=== PATIENT | male | born 2000 | race Caucasian/White ===

== ENCOUNTER → 2021-08-26 | Outpatient (CLI) | payer OTHER ==
[~2021-08-26] MED LIST: ADVAIR 100/501 E1 INH; BACTROBAN OINT22 GM NAS; BROMFED-DM 480480 ML PO; LIQUID MAGNESI400 MG PO; MOTRIN400 MG PO; PERIACTIN2 MG/5ML PO; PHENERGAN25 M1 PO; TOPAMAX25 M1 PO; TUSSIN100 MG/5 M PO; TYLENOL325 M1 PO; VITAMIN B225 MG PO; ZITHROMAX250 MG PO; Zofran4 MG PO
[2021-08-26 14:11] LABS: BASO % 0.4 % (0.0-1.0); EOS # 0.4 10*3/uL (0.0-0.4); EOS % 4.3 % (1.0-4.0); HEMATOCRIT 43.2 % (42.0-52.0); LYMPH # 1.7 10*3/uL (1.3-4.4); LYMPH % 21.4 % (27.0-41.0); MEAN CELL VOLUME 96.9 fl (80.0-94.0); MEAN CORPUSCULAR HGB 33.6 pg (27.0-31.0); MEAN CORPUSCULAR HGB CONC 34.7 g/dl (33.0-37.0); MEAN PLATELET VOLUME 10.8 fl (9.6-12.3); MONO # 1.5 10*3/uL (0.1-1.0); MONO % 18.6 % (3.0-9.0); NEUT # 4.5 10*3/uL (2.3-7.9); NEUT % 55.1 % (47.0-73.0); PLATELET COUNT AUTOMATED 174 10*3/uL (130-400); RED BLOOD COUNT 4.46 10*6/uL (4.50-5.90); RED CELL DISTRI WIDTH 12.5 % (0-14.5); WHITE BLOOD COUNT 8.1 10*3/uL (4.8-10.8)
== END | disposition home or self-care (01) ==
LOC: LAB 13:51
PROVIDERS: ATTEND Pediatrics
DX: R05.9 Cough, unspecified (principal)

== ENCOUNTER 2024-02-17 21:01 | Inpatient (IN) | payer SELFPAY ==
[~2024-02-17] VITALS: Ht 177.8 cm; Wt 72.6 kg
[2024-02-17] MEDS ORDERED: Naloxone Hydrochloride 2 MG/2 ML SYR NAS ONE ×5 (21:05→21:30)
[2024-02-17] MEDS ORDERED: Naloxone Hydrochloride 2 MG/2 ML SYR ONE (21:38)
[2024-02-17 21:46] VITALS: BP 118/82
[2024-02-17] MEDS ORDERED: [UNRECOGNIZED DRUG - OTHER] IV SCH (21:50)
[2024-02-17] MEDS ORDERED: SODIUM CHLORIDE 0.9% IV SCH (21:50)
[2024-02-17 21:59] VITALS: BP 152/103
[2024-02-17 23:03] LABS: BASO % 0.2 % (0.0-1.0); EOS # 0.1 10*3/uL (0.0-0.4); EOS % 0.8 % (1.0-4.0); HEMATOCRIT 40.5 % (42.0-52.0); LYMPH # 2.1 10*3/uL (1.3-4.4); LYMPH % 16.1 % (27.0-41.0); MEAN CELL VOLUME 91.6 fl (80.0-94.0); MEAN CORPUSCULAR HGB 31.7 pg (27.0-31.0); MEAN CORPUSCULAR HGB CONC 34.6 g/dl (33.0-37.0); MONO % 7.8 % (3.0-9.0); NEUT # 9.8 10*3/uL (2.3-7.9); NEUT % 74.9 % (47.0-73.0); PLATELET COUNT AUTOMATED 209 10*3/uL (130-400); RED BLOOD COUNT 4.42 10*6/uL (4.50-5.90); RED CELL DISTRI WIDTH 12.1 % (0-14.5)
[2024-02-17 23:27] LABS: ALKALINE PHOSPHATASE 116 U/L (46-116); BUN 13 mg/dl (9-23); CHLORIDE 106 mmol/L (98-107); LIPASE 242 U/L (12-53); POTASSIUM 3.1 mmol/L (3.4-5.1); SGPT/ALT 17 U/L (5-49); TOTAL PROTEIN 7.5 gm/dL (6.0-8.0)
[2024-02-17 23:28] LABS: ETHYL ALCOHOL < 3.0 mg/dl (<3)
[2024-02-17] MEDS ORDERED: SODIUM CHLORIDE 0.9% 1,000 ML IV ONE (23:35)
[2024-02-18] VITALS (7 sets, daily range): BP systolic 138–179; BP diastolic 73–88
[2024-02-18] MEDS ORDERED: NICOTINE POLACRILEX 4 MG GUM PO PRN (00:50)
[2024-02-18] MEDS ORDERED: Ondansetron Hydrochloride 4 MG TAB PO PRN (00:50)
[2024-02-18] MEDS ORDERED: MG-AL HYDROXIDE/SIMETICONE 30 ML UDC PO PRN (00:50)
[2024-02-18] MEDS ORDERED: ACETAMINOPHEN 500 MG TAB PO PRN (00:50)
[2024-02-18] MEDS ORDERED: BISACODYL 10 MG SUPP R PRN (00:50)
[2024-02-18] MEDS ORDERED: Ondansetron Hydrochloride 4 MG/2 ML VIAL IV PRN (00:50)
[2024-02-18] MEDS ORDERED: Nicotine 21 MG PATCH T PRN (00:50)
[2024-02-18] MEDS ORDERED: Sennosides A and B 8.6 MG TAB PO PRN (00:50)
[2024-02-18] MEDS ORDERED: IBUPROFEN 600 MG TAB PO PRN (00:50)
[2024-02-18] MEDS ORDERED: Loperamide Hydrochloride 2 MG CAP PO PRN ×2 (00:50)
[2024-02-18] MEDS ORDERED: POTASSIUM CHLORIDE 20 MEQ TAB PO ONE (00:55)
[2024-02-18] MEDS ORDERED: SODIUM CHLORIDE 0.9% 1,000 ML IV ONE (01:00)
[2024-02-18 07:46] LABS: BASO % 0.1 % (0.0-1.0); EOS % 0.1 % (1.0-4.0); HEMATOCRIT 42.6 % (42.0-52.0); LYMPH # 0.8 10*3/uL (1.3-4.4); LYMPH % 9.6 % (27.0-41.0); MEAN CORPUSCULAR HGB CONC 34.7 g/dl (33.0-37.0); MEAN PLATELET VOLUME 10.9 fl (9.6-12.3); MONO # 0.4 10*3/uL (0.1-1.0); MONO % 4.4 % (3.0-9.0); NEUT # 7.1 10*3/uL (2.3-7.9); NEUT % 85.4 % (47.0-73.0); PLATELET COUNT AUTOMATED 209 10*3/uL (130-400); RED BLOOD COUNT 4.63 10*6/uL (4.50-5.90); RED CELL DISTRI WIDTH 12.3 % (0-14.5); WHITE BLOOD COUNT 8.3 10*3/uL (4.8-10.8)
[2024-02-18 08:05] LABS: BUN 9 mg/dl (9-23); CHLORIDE 106 mmol/L (98-107); POTASSIUM 3.3 mmol/L (3.4-5.1)
[2024-02-18] MEDS ORDERED: TEMAZEPAM 15 MG CAP PO PRN (08:35)
[2024-02-18] MEDS ORDERED: Ondansetron Hydrochloride 4 MG/2 ML VIAL IV ONE (08:35)
[2024-02-18] MEDS ORDERED: hydrOXYzine 50 MG CAP PO PRN (08:45)
[2024-02-18] MEDS ORDERED: METHOCARBAMOL 750 MG TAB PO PRN (08:45)
[2024-02-18] MEDS ORDERED: Dicyclomine Hydrochloride 20 MG TAB PO PRN (08:45)
[2024-02-18] MEDS ORDERED: diphenhydrAMINE hydrochloride 50 MG/ML VIAL IV PRN (08:45)
[2024-02-18] MEDS ORDERED: Enoxaparin Sodium 40 MG/0.4 ML SYR SC SCH (10:00)
[2024-02-18] MEDS ORDERED: MULTIVITAMIN 1 TAB TAB PO SCH (10:00)
[2024-02-18] MEDS ORDERED: POTASSIUM CHLORIDE 20 MEQ TAB PO SCH (10:00)
[2024-02-18 12:29] LABS: ABG BASE EXCESS -1.3 mmol/L (-2.0-2.0); ARTERIAL BLOOD GAS PH 7.446 (7.35-7.45)
[2024-02-18] MEDS ORDERED: POTASSIUM CHLORIDE IN WATER 100 ML IV SCH (13:00)
[2024-02-19] VITALS: BP 133/79
[2024-02-19 05:22] LABS: BUN 11 mg/dl (9-23); CHLORIDE 106 mmol/L (98-107); CHOLESTEROL 139 mg/dL (<200); LDL CHOLESTEROL 81 mg/dL (9-159); POTASSIUM 3.8 mmol/L (3.4-5.1); TRIGLYCERIDES 77 mg/dl (<150)
[2024-02-19 06:11] LABS: BASO % 0.1 % (0.0-1.0); HEMATOCRIT 39.5 % (42.0-52.0); LYMPH # 1.3 10*3/uL (1.3-4.4); LYMPH % 15.6 % (27.0-41.0); MEAN CELL VOLUME 92.9 fl (80.0-94.0); MEAN CORPUSCULAR HGB 31.8 pg (27.0-31.0); MEAN CORPUSCULAR HGB CONC 34.2 g/dl (33.0-37.0); MONO # 0.8 10*3/uL (0.1-1.0); MONO % 9.9 % (3.0-9.0); NEUT # 6.3 10*3/uL (2.3-7.9); NEUT % 74.2 % (47.0-73.0); PLATELET COUNT AUTOMATED 202 10*3/uL (130-400); RED BLOOD COUNT 4.25 10*6/uL (4.50-5.90); RED CELL DISTRI WIDTH 12.5 % (0-14.5); WHITE BLOOD COUNT 8.5 10*3/uL (4.8-10.8)
[2024-02-19 06:42] LABS: BILIRUBIN Negative (Negative); BLOOD Negative (Negative); CLARITY Clear (Clear); COLOR Yellow (Yellow); GLUCOSE Negative (Negative); KETONE 4+ (Negative); LEUKO ESTERASE Negative (Negative); NITRITE Negative (Negative); PH 6.5 (4.5-8.0); SPECIFIC GRAVITY >= 1.030 (1.001-1.030)
[2024-02-19 06:50] LABS: URINE AMPHETAMINES Positive (1000ng/ml); URINE BARBITURATES Negative (200ng/ml); URINE BENZODIAZEPINES Positive (200ng/ml); URINE CANNABINOIDS (THC) Positive (50ng/ml); URINE COCAINE Positive (300ng/ml); URINE METHADONE Negative (300ng/ml); URINE OPIATES Negative (300ng/ml); URINE PHENCYCLIDINE Negative (25ng/ml)
[2024-02-19 07:36] LABS: BACTERIA TRACE; EPITHELIAL CELLS 0-2; MUCOUS 2+
[2024-02-19 08:00] VITALS: BP 145/81
[2024-02-19 11:06] LABS: HEPATITIS B SURFACE AG Negative (Negative)
[2024-02-19 12:00] VITALS: BP 120/73
[2024-02-19] MEDS ORDERED: Buprenorphine Hydrochloride 2 MG TAB SL SCH (14:00)
[2024-02-20] MEDS ORDERED: Buprenorphine Hydrochloride 2 MG TAB SL SCH (14:00)
[2024-02-21] MEDS ORDERED: Buprenorphine Hydrochloride 2 MG TAB SL SCH (18:00)
== END 2024-02-19 14:15 | disposition left against medical advice (07) | DRG 917 ==
LOC: ED 21:01 → EDHOLD 23:53 → ICCU 23:53
PROVIDERS: Family Medicine; Internal Medicine; Internal Medicine Pulmonary Disease; Student in an Organized Health Care Education/Training Program; ADMIT Student in an Organized Health Care Education/Training Program; ATTEND Student in an Organized Health Care Education/Training Program
DX: T40.411A Poisoning by fentanyl or fentanyl analogs, accidental (unintentional), initial encounter (principal); G92.9 Unspecified toxic encephalopathy; F11.93 Opioid use, unspecified with withdrawal; D75.89 Other specified diseases of blood and blood-forming organs; E87.6 Hypokalemia; R73.9 Hyperglycemia, unspecified; F19.10 Other psychoactive substance abuse, uncomplicated; Z53.29 Procedure and treatment not carried out because of patient's decision for other reasons; F17.210 Nicotine dependence, cigarettes, uncomplicated; I10 Essential (primary) hypertension; T40.605A Adverse effect of unspecified narcotics, initial encounter; Z83.2 Family history of diseases of the blood and blood-forming organs and certain disorders involving the immune mechanism; Y92.89 Other specified places as the place of occurrence of the external cause